=== PATIENT | female | born 1985 | race Caucasian/White ===

== ENCOUNTER 2017-07-17 02:53 | Emergency (ER) | payer OTHER ==
[~2017-07-17] VITALS: Ht 160 cm; Wt 56.7 kg
[~2017-07-17 02:53] MED LIST: ABILIFY5 MG PO; AMBIEN10 MG PO; AMOXICILLIN875 MG PO; CAMILA0.35 MG PO; IBUPROFEN800 MG PO; KEFLEX500 MG PO; METHADONE10 MG PO; MOTRIN800 MG PO; NICODERM CQ1 EAC1 TD; PERCOCET 5/31 TABLET PO; ULTRAM50 MG PO; XANAX1 MG PO; XANAX2 MG PO
[2017-07-17] MEDS ORDERED: PEN-VEE K,VEET500 MG PO (03:34)
[2017-07-17] MEDS ORDERED: MOTRIN800 MG PO (03:34)
[2017-07-17 03:48] VITALS: BP 126/84
== END 2017-07-17 03:49 | disposition home or self-care (01) ==
LOC: EME 02:53
DX: J02.9 Acute pharyngitis, unspecified (principal); K12.0 Recurrent oral aphthae; K02.9 Dental caries, unspecified; K03.81 Cracked tooth; F17.210 Nicotine dependence, cigarettes, uncomplicated
CPT/HCPCS: 99281; 99284

== ENCOUNTER 2017-12-15 16:00 | Emergency (ER) | payer OTHER ==
[~2017-12-15] VITALS: Ht 162.6 cm; Wt 54.7 kg
[~2017-12-15 16:00] MED LIST changes: +PEN-VEE K,VEET500 MG PO
[2017-12-15] MEDS ORDERED: MOTRIN800 MG PO (18:29)
[2017-12-15] MEDS ORDERED: LIDODERM 5% P1 PATCH TD (18:29)
[2017-12-15] MEDS ORDERED: VALIUM5 MG PO (18:29)
[2017-12-15] MEDS ORDERED: NORCO 7.5/321 TABLET PO (18:29)
[2017-12-15 18:57] VITALS: BP 104/67
== END 2017-12-15 18:59 | disposition home or self-care (01) ==
LOC: EME 16:00
DX: M54.42 Lumbago with sciatica, left side (principal); F17.200 Nicotine dependence, unspecified, uncomplicated; Z88.5 Allergy status to narcotic agent
CPT/HCPCS: 99281; 99284; J3010